=== PATIENT | female | born 1955 | race Two or more races ===

== ENCOUNTER 2021-03-24 10:30 | Inpatient (IN) | payer OTHER ==
[~2021-03-24] VITALS: Ht 162.6 cm; Wt 77.1 kg
[2021-03-24] MEDS ORDERED: SYNTHROID100 MCG PO (11:53)
[2021-03-24] MEDS ORDERED: METFORMIN HCL1000 M2 PO (11:53)
[2021-03-24] MEDS ORDERED: LIPITOR40 MG PO (11:54)
[2021-03-24] MEDS ORDERED: ATIVAN1 M1 PO (11:54)
[2021-03-24] MEDS ORDERED: LISINOPRIL10 MG PO (11:54)
[2021-04-01] MEDS ORDERED: PERCOCET 5-3251 EACH PO (07:34)
[2021-04-01] MEDS ORDERED: MEDROLPACK PO (07:34)
[2021-04-01] MEDS ORDERED: DIAZEPAM5 MG PO (07:34)
[2021-04-01] MEDS ORDERED: COLACE100 MG PO (07:34)
== END 2021-04-02 13:27 | disposition home or self-care (01) | DRG 473 ==
LOC: O/R 04-01 04:50 → SURH 04-01 07:00 → PED 04-01 15:36
PROVIDERS: ADMIT Orthopaedic Surgery Orthopaedic Surgery of the Spine; ATTEND Orthopaedic Surgery Orthopaedic Surgery of the Spine
PROC: XRG20F3 Fusion of 2 or more Cervical Vertebral Joints using Radiolucent Porous Interbody Fusion Device, Open Approach, New Technology Group 3 (ICD-10-PCS; 2021-04-01)
PROC: 4A12X4Z Monitoring of Cardiac Electrical Activity, External Approach (ICD-10-PCS; 2021-04-01)
PROC: 0RT30ZZ Resection of Cervical Vertebral Disc, Open Approach (ICD-10-PCS; principal; 2021-04-01 07:00)
DX: M50.021 Cervical disc disorder at C4-C5 level with myelopathy (principal); M48.02 Spinal stenosis, cervical region; I10 Essential (primary) hypertension; E11.9 Type 2 diabetes mellitus without complications; E03.8 Other specified hypothyroidism; Z79.84 Long term (current) use of oral hypoglycemic drugs